=== PATIENT | female | born 1935 | race African-American/Black ===

== ENCOUNTER 2017-11-18 09:11 | Emergency (ER) | payer MEDICARE, BC ==
[~2017-11-18] VITALS: Ht 160 cm; Wt 81.6 kg
[~2017-11-18 09:11] MED LIST: MECLIZINE HCL25 MG ORAL; PERCOCET 5-3251 EACH ORAL
[2017-11-18 09:44] VITALS: BP 150/88
--- NOTE | 2017-11-18 10:04 | Emergency Room Report ---
History of Present Illness General Chief Complaint: Multiple Trauma/Fall Present Illness HPI 82-year-old female presents ED complaining of headache status post fall. Patient rolled out of her bed this morning and fell to the floor. Unwitnessed. Patient resides at long term facility. Patient denies LOC. Complains of pain to the back of her head where she hit her head. Pain was initially a 9 out of 10, sharp, nonradiating. However at this time patient denies any pain. Denies any headache. Denies any blurry vision. Denies any neck stiffness. No other aggravating or relieving factors. Denies any other associated symptoms Allergies: Coded Allergies: MEPERIDINE (Verified Adverse Reaction, Intermediate, 07/10/13) Patient History Past Medical History: HTN Past Surgical History: none Pertinent Family History: none Social History: Denies: smoking, alcohol use, drug use Now: No Immunizations: UTD Reviewed Nursing Documentation: PMH: Agreed; PSxH: Agreed Nursing Documentation-PMH Hx Hypertension: Yes Review of Systems All Other Systems: negative except mentioned in HPI Physical Exam Vital Signs Date Time Temp Pulse Resp B/P (MAP) Pulse Ox O2 Delivery O2 Flow Rate FiO2 11/18/17 09:09 97.6 67 18 150/88 96 Room Air 97.5 Sp02 EP Interpretation: reviewed, normal General Appearance: no apparent distress, alert, GCS 15, non-toxic Head: normocephalic, atraumatic Eyes: bilateral eye normal inspection, bilateral eye PERRL ENT: hearing grossly normal, normal pharynx, no angioedema, normal voice Neck: full range of motion, supple/symm/no masses Respiratory: chest non-tender, lungs clear, normal breath sounds, speaking full sentences Cardiovascular #1: regular rate, rhythm, no edema Cardiovascular #2: 2+ carotid (R), 2+ carotid (L), 2+ radial (R), 2+ radial (L) , 2+ dorsalis pedis (R), 2+ dorsalis pedis (L) Gastrointestinal: normal bowel sounds, non tender, soft, non-distended, no guarding, no rebound Rectal: deferred Genitourinary: normal inspection, no CVA tenderness Musculoskeletal: back normal, gait/station normal, normal range of motion, non- tender Neurologic: alert, responsive, motor strength/tone normal, sensory intact, speech normal, other - oriented x 2 Psychiatric: judgement/insight normal, memory normal, mood/affect normal, no suicidal/homicidal ideation Reflexes: 3+ bicep (R), 3+ bicep (L), 3+ tricep (R), 3+ tricep (L), 3+ knee (R) , 3+ knee (L) Skin: normal color, no rash, warm/dry, well hydrated Lymphatic: no adenopathy Medical Decision Making Diagnostic Impression: Primary Impression: Closed head injury Qualified Codes: S09.90XA - Unspecified injury of head, initial encounter Additional Impression: Fall from bed Qualified Codes: W06.XXXA - Fall from bed, initial encounter ER Course Hospital Course 82-year-old female presents ED complaining of headache status post fall from bed Differential diagnoses include: skull fx, intracranial injury, concussion Clinical course Patient placed on stretcher. After initial history and physical I ordered CT head Patient declined pain medication CT head shows no acute process. Patient is mentating at her baseline. Not on blood thinners. I believe patient is safe for discharge Diagnosis - closed head injury, fall from bed Stable and discharged to SNF. Followup with PMD. Return to ED if symptoms recur or worsen CT/MRI/US Diagnostic Results CT/MRI/US Diagnostic Results : Imaging Test Ordered: CT Head Impression no acute process Last Vital Signs Date Time Temp Pulse Resp B/P (MAP) Pulse Ox O2 Delivery O2 Flow Rate FiO2 11/18/17 09:44 97.5 88 18 150/88 96 Room Air 97.5 Status: improved Disposition: [facility] SN[facility] Condition: Stable Ga Pollard MD November 18, 2017 10:04
--- NOTE | 2017-11-18 10:13 | Diagnostic Imaging Report ---
Indication: Headache Technique: Continuous helical CT scanning of the head was performed without intravenous contrast material. Axial and coronal 5 mm sections were generated. Dose: Total Dose Length Product - DLP [address] Dose Index - CTDIvol(s) 70.38 mGy. Automated exposure control was utilized for dose reduction. Comparison: 07/10/2013 Findings: Compare to previous study there is considerable prominence of cortical sulci and the ventricular system, increased from previous study. Periventricular low density is present. There is no shift of midline structures. No abnormal extra-axial fluid collections are noted. There is no evidence of intracerebral bleeding. No other abnormal high or low density areas are noted within the brain. Impression: Atrophy, increased from previous study. 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 The CT scanner at [facility] is accredited by the [employer] and the scans are performed using protocols designed to limit radiation exposure to as low as reasonably achievable to attain images of sufficient resolution adequate for diagnostic evaluation.
[2017-11-18 11:51] VITALS: BP 145/56
[2017-11-18 13:32] VITALS: BP 145/56
== END 2017-11-18 13:33 ==
LOC: EDBD 09:11 → EMR 11:04
DX: R51 Headache (principal); S09.8XXA Other specified injuries of head, initial encounter; W06.XXXA Fall from bed, initial encounter; Y92.122 Bedroom in nursing home as the place of occurrence of the external cause; I10 Essential (primary) hypertension
CPT/HCPCS: 70450; 99284